=== PATIENT | female | born 1955 | race Caucasian/White ===

== ENCOUNTER 2018-11-02 12:28 | Emergency (ER) | payer BC ==
[2018-11-02 12:54] VITALS: BP 102/56
--- NOTE | 2018-11-02 13:45 | UC ---
UC General HPI - HPI Summary HPI Summary: Concern for sore on anus for past 10 days. States for the first week she put alcohol on it and triple antibiotic ointment. Last time she had this a few months ago, same problem and antibiotic ointment cleared it up. She states today when she was wiping with alcohol swab she got some pus on swab an was concerned for an infection. [facility] colonoscopy in 08/02 and was told she had hemorroids otherwise unremarkable. Gets a sore on her anus about once every 8- 10 months. No weight loss. No fevers. No diarrhea. More prone to be constipated. Meds: Reviewed - History of Current Complaint Chief Complaint: [facility]CGU Stated Complaint: PERSONAL Time Seen by Provider: 11/02/18 13:34 Pain Intensity: 3 - Allergy/Home Medications Allergies/Adverse Reactions: Allergies Allergy/AdvReac Type Severity Reaction Status Date / Time thimerosal Allergy Severe Eyes Verified 11/02/18 12:54 Itchy/Swollen/Red/Watery PMH/Surg Hx/FS Hx/Imm Hx Previously Healthy: Yes - Surgical History Surgical History: Yes Surgery Procedure, Year, and Place: EAR SURGERY [place];10/11/2008;[facility] [place] - Social History Alcohol Use: Occasionally Substance Use Type: None Smoking Status (MU): Never Smoked Tobacco Review of Systems All Other Systems Reviewed And Are Negative: Yes Physical Exam Triage Information Reviewed: Yes Appearance: Well-Appearing Vital Signs: Initial Vital Signs Temp 99.2 F 11/02/18 12:50 Pulse 65 11/02/18 12:50 Resp 18 11/02/18 12:50 BP 102/56 11/02/18 12:50 Pulse Ox 97 11/02/18 12:50 Abdomen Description: Positive: Other: - rectal exam: small tear, anal fissure. No purulent drainage. minimal erythema. No hemorroids seen Course/Dx - Course Course Of Treatment: This is a 63 yr old with sore on anus Assessment Unclear - maybe small perirectal abscess but likely anal fissure No evidence of hemorroids Plan Possibly a very small perirectal abscess seen Recommend discontinue alcohol swabs and antibiotic ointment Recommend warm sitz baths, mainly after having a bowel movement Starting Augmentin as prescribed If symptoms persist or worsen, recommend follow up with PCP or return to urgent care - Diagnoses Provider Diagnosis: Perirectal abscess Discharge - Sign-Out/Discharge Documenting (check all that apply): Patient Departure All imaging exams completed and their final reports reviewed: No Studies - Discharge Plan Condition: Good Disposition: HOME Prescriptions: Amoxicillin/Clavulanate TAB* [Augmentin TAB 875*] 875 mg PO BID #10 tab Referrals: Ashley Aleman MD [Primary Care Provider] - Additional Instructions: Possibly a very small perirectal abscess seen Recommend discontinue alcohol swabs and antibiotic ointment Recommend warm sitz baths, mainly after having a bowel movement Starting Augmentin as prescribed If symptoms persist or worsen, recommend follow up with PCP or return to urgent care - Billing Disposition and Condition Condition: GOOD Disposition: Home
== END 2018-11-02 14:05 | disposition home or self-care (01) ==
LOC: UCEAST 12:28
DX: K61.1 Rectal abscess (principal)
CPT/HCPCS: 99212; G0463